=== PATIENT | male | born 1960 | race Caucasian/White ===

== ENCOUNTER 2019-07-07 11:02 | Inpatient (IN) | payer OTHER, MEDICARE ==
[~2019-07-07] VITALS: Ht 177.8 cm; Wt 72.3 kg
[~2019-07-07 11:02] MED LIST: CEPH500 PO; OXYACE5T PO; RXOXYACE PO
[2019-07-07 11:40] LABS: BASOPHILS ABSOLUTE AUTO 0.04 K/mm3 (0.00-0.23); BASOPHILS PERCENT AUTO 0 % (0-2); EOSINOPHILS ABSOLUTE AUTO 0.03 K/mm3 (0.00-0.68); EOSINOPHILS PERCENT AUTO 0 % (0-6); Hematocrit 49.6 % (37.0-53.0); Hemoglobin 16.5 g/dL (13.5-17.5); IMMATURE GRAN ABSOLUTE AUTO 0.13 K/mm3 (0.00-0.10); IMMATURE GRAN PERCENT AUTO 1 % (0-1); LYMPHOCYTES ABSOLUTE AUTO 1.65 K/mm3 (0.84-5.20); LYMPHOCYTES PERCENT AUTO 7 % (21-46); MONOCYTES ABSOLUTE AUTO 1.55 K/mm3 (0.16-1.47); MONOCYTES PERCENT AUTO 7 % (4-13); Mean Corpuscular HGB 29.6 pg (26.0-34.0); Mean Corpuscular HGB Conc 33.3 g/dL (31.5-36.5); Mean Corpuscular Volume 89 fL (80-100); Mean Platelet Volume 8.9 fL (9.1-12.4); NEUTROPHILS ABSOLUTE AUTO 20.36 K/mm3 (1.96-9.15); NEUTROPHILS PERCENT AUTO 86 % (41-73); Platelet Count 421 K/mm3 (150-400); RDW Coefficient Variation 14.1 % (11.7-14.2); RDW Standard Deviation 46.5 fL (35.1-46.3); Red Blood Cell Count 5.57 M/mm3 (4.30-5.90); White Blood Cell Count 23.76 K/mm3 (4.00-11.30)
[2019-07-07 11:59] LABS: Alanine Aminotransfer (ALT/SGP 87 U/L (12-78); Albumin, Blood 3.9 g/dL (3.4-5.0); Alk Phos 279 U/L (50-136); Anion Gap 12 mmol/L (6-16); Aspartate Aminotrans (AST/SGOT 37 U/L (12-37); Bilirubin, Total 0.8 mg/dL (0.1-1.0); Blood Urea Nitrogen 16 mg/dL (8-24); Bun/Creatinine Ratio 20.2 (12.0-20.0); CO2, Blood 27 mmol/L (21-32); Calcium, Blood 9.5 mg/dL (8.5-10.1); Chloride, Blood 100 mmol/L (98-108); Creatinine, Blood 0.79 mg/dL (0.60-1.20); Globulin, Blood 4.1 g/dL (2.2-4.0); Glomerular Filtration Rate >60 (60-); Glucose, Blood 161 mg/dL (70-99); Potassium, Blood 3.2 mmol/L (3.5-5.5); Sodium, Blood 139 mmol/L (136-145)
[2019-07-07] MEDS ORDERED: Prozac20 MG PO (12:11)
[2019-07-07] MEDS ORDERED: CALCIUM 600 +1 EA11 PO (12:11)
[2019-07-07] MEDS ORDERED: Amitriptyline100 MG PO (12:11)
[2019-07-07] MEDS ORDERED: ROSU10TA PO (12:12)
[2019-07-07] MEDS ORDERED: Lisinopril-Hct1 EAC4 PO (12:12)
[2019-07-07] MEDS ORDERED: PANT40 PO (12:12)
[2019-07-07] MEDS ORDERED: TRAM50 PO (12:12)
[2019-07-07 12:37] LABS: Source, Urine Voided
[2019-07-07 12:40] LABS: Bilirubin, Urine Neg (Neg); Blood, Urine 1+ (Neg); Glucose Qualitative, Urine 1+ (Neg); Ketones, Urine 4+ (Neg); Leukocyte Esterase, Urine 1+ (Neg); Nitrite, Urine Neg (Neg); Protein, Urine 3+ (Neg); Specific Gravity, Urine 1.025 (1.003-1.022); Urobilinogen, Urine 1+ (Normal)
[2019-07-07 12:49] LABS: Appearance, Urine Hazy (Clear); Color, Urine Yellow (P-Yellow)
[2019-07-07 12:50] LABS: Calcium Oxalate Crystals Few /hpf
[2019-07-07 12:52] LABS: Mucus Mod (0-Heavy)
[2019-07-07 12:54] LABS: Amorphous Heavy (0-Heavy)
[2019-07-07 12:55] LABS: Bacteria Mod /hpf; Squamous Epithelial Cells Not Seen /hpf (Few)
[2019-07-08 05:25] LABS: BASOPHILS ABSOLUTE AUTO 0.02 K/mm3 (0.00-0.23); BASOPHILS PERCENT AUTO 0 % (0-2); EOSINOPHILS ABSOLUTE AUTO 0.02 K/mm3 (0.00-0.68); EOSINOPHILS PERCENT AUTO 0 % (0-6); Hematocrit 42.9 % (37.0-53.0); Hemoglobin 14.3 g/dL (13.5-17.5); IMMATURE GRAN ABSOLUTE AUTO 0.07 K/mm3 (0.00-0.10); IMMATURE GRAN PERCENT AUTO 0 % (0-1); LYMPHOCYTES ABSOLUTE AUTO 1.68 K/mm3 (0.84-5.20); LYMPHOCYTES PERCENT AUTO 9 % (21-46); MONOCYTES ABSOLUTE AUTO 1.49 K/mm3 (0.16-1.47); MONOCYTES PERCENT AUTO 8 % (4-13); Mean Corpuscular HGB 30.1 pg (26.0-34.0); Mean Corpuscular HGB Conc 33.3 g/dL (31.5-36.5); Mean Corpuscular Volume 90 fL (80-100); NEUTROPHILS ABSOLUTE AUTO 15.27 K/mm3 (1.96-9.15); NEUTROPHILS PERCENT AUTO 82 % (41-73); Platelet Count 328 K/mm3 (150-400); RDW Coefficient Variation 14.3 % (11.7-14.2); RDW Standard Deviation 47.5 fL (35.1-46.3); Red Blood Cell Count 4.75 M/mm3 (4.30-5.90); White Blood Cell Count 18.55 K/mm3 (4.00-11.30)
[2019-07-08 05:41] LABS: Magnesium, Blood 2.2 mg/dL (1.6-2.4)
[2019-07-08 05:42] LABS: Alanine Aminotransfer (ALT/SGP 65 U/L (12-78); Albumin, Blood 2.9 g/dL (3.4-5.0); Albumin/Globulin Ratio 0.9 (0.8-1.8); Alk Phos 197 U/L (50-136); Anion Gap 5 mmol/L (6-16); Aspartate Aminotrans (AST/SGOT 38 U/L (12-37); Bilirubin, Total 1.6 mg/dL (0.1-1.0); Blood Urea Nitrogen 14 mg/dL (8-24); Bun/Creatinine Ratio 22.7 (12.0-20.0); CO2, Blood 28 mmol/L (21-32); Calcium, Blood 8.2 mg/dL (8.5-10.1); Chloride, Blood 108 mmol/L (98-108); Creatinine, Blood 0.62 mg/dL (0.60-1.20); Globulin, Blood 3.2 g/dL (2.2-4.0); Glomerular Filtration Rate >60 (60-); Glucose, Blood 129 mg/dL (70-99); Potassium, Blood 3.3 mmol/L (3.5-5.5); Sodium, Blood 141 mmol/L (136-145); Total Protein, Blood 6.1 g/dL (6.4-8.2)
--- NOTE | 2019-07-08 06:53 | NUR ---
SHIFT SUMMARY PT IS PLEASANT AND COOPERATIVE WITH CARE. HE IS AAOX4 WITH RESP E/U ON RA. VSS THOUGH HE HAS BEEN HYPERTENSIVE THROUGH THE NIGHT. TREATED WITH HYDRALAZINE WITH SMALL SUCCESS. STOMACH PAIN OFF AND ON THROUGH THE NIGHT. TREATED APPROX EVERY TWO HOURS WITH PRN FENTYNAL. PT HAS BEEN NPO SINCE MIDNIGHT. NO ACUTE CHANGES NOTED THIS NIGHT. WILL CONTINUE TO MONITOR.
--- NOTE | 2019-07-08 14:35 | NUR ---
ABD FIRM AND DISTENDED. PAIN LEVEL 8/10. REPORT GIVEN TO JORGE MUJICA RN.
--- NOTE | 2019-07-08 15:05 | NUR ---
RECIEVED REPORT AND ASSUMED CARE OF PATIENT.
--- NOTE | 2019-07-08 17:09 | NUR ---
PATIENT TRANSPORTED TO OR: PATIENT TRANSPORTED TO OR FOR COLECTOMY SURGERY @ 1410.
--- NOTE | 2019-07-08 20:29 | NUR ---
PT ARRIVED FROM PACU AT APPROX 1999. PT LETHARGIC AND IN SOME PAIN. AWAKENS AND ANSWERS QUESTIONS APPROPRIATLY. SATS AT 88-90% ON ROOM AIR. PLACED 1L VIA NC SATS CLIMBED TO 94%, EDUCATED PATIENT ON EPIDURAL USE AND THE BOLUS BUTTON. ONCE PRESSED PATIENT TOOK DEEPER BREATHS AND SATS CLIMBED TO 97% ON 1L. NG SUCTIONING BROWN LIQUID. STOMA PINK AND BEEFY, RESIDUAL STOOL IN BAG, NO FLATUS NOTED. TAVAREZ PATENT AND DRAINING. FOAM COMPRESSED ON PICCO. CALL LIGHT IN REACH. PATIENT ORIENTED TO ROOM
--- NOTE | 2019-07-08 23:00 | NUR ---
SPOKE TO DR. GOSS R/T PT'S PAIN, PT REPORTED 10/10 UNTOLERABLE. GRIMACING AND SQUIRMING, RAPID BREATHING, AND HR 115+PER TELE MONITOR. ORDERS GIVEN TO INCREASE BASAL RATE TO 16ML/HR, AND A ONE TIME DOSE OF 10ML. PER MD CAN LOWER BASAL RATE DOWN TO 13ML/HR IF 16 DEEMED TO HIGH. WILL ADJUST SETTINGS AND CONTINUE TO MONITOR SENSATION, ALERTNESS, AND LEVEL OF PAIN.
--- NOTE | 2019-07-09 01:12 | NUR ---
PT REPORTS DECRESED SENSATION BELOW NIPPLE LINE WITH CHANGE TO NUMBNESS STARTING BILAT UPPER THIGHS DOWN TO KNEES. LIFTS LEGS AND WIGGLES TOES WITHOUT DIFFICULTY.
[2019-07-09 04:08] LABS: BASOPHILS ABSOLUTE AUTO 0.03 K/mm3 (0.00-0.23); BASOPHILS PERCENT AUTO 0 % (0-2); EOSINOPHILS ABSOLUTE AUTO 0.02 K/mm3 (0.00-0.68); EOSINOPHILS PERCENT AUTO 0 % (0-6); Hematocrit 36.3 % (37.0-53.0); Hemoglobin 11.8 g/dL (13.5-17.5); IMMATURE GRAN ABSOLUTE AUTO 0.08 K/mm3 (0.00-0.10); IMMATURE GRAN PERCENT AUTO 1 % (0-1); LYMPHOCYTES ABSOLUTE AUTO 1.39 K/mm3 (0.84-5.20); LYMPHOCYTES PERCENT AUTO 8 % (21-46); MONOCYTES ABSOLUTE AUTO 1.52 K/mm3 (0.16-1.47); MONOCYTES PERCENT AUTO 9 % (4-13); Mean Corpuscular HGB 29.9 pg (26.0-34.0); Mean Corpuscular HGB Conc 32.5 g/dL (31.5-36.5); Mean Corpuscular Volume 92 fL (80-100); Mean Platelet Volume 8.9 fL (9.1-12.4); NEUTROPHILS ABSOLUTE AUTO 13.48 K/mm3 (1.96-9.15); NEUTROPHILS PERCENT AUTO 82 % (41-73); Platelet Count 263 K/mm3 (150-400); RDW Coefficient Variation 14.4 % (11.7-14.2); RDW Standard Deviation 48.3 fL (35.1-46.3); Red Blood Cell Count 3.94 M/mm3 (4.30-5.90); White Blood Cell Count 16.52 K/mm3 (4.00-11.30)
--- NOTE | 2019-07-09 04:23 | NUR ---
SHIFT SUMMARY POD 1 COLECTOMY WITH NEW OSTOMY STOMA PINK AND BEEFY. BROWN LOOSE STOOL AND GAS PASSED DURING SHIFT. PICCO INTACT NO CHANGES SINCE ARRIVAL, GREEN LIGHT ON. EPIDURAL IN PLACE, RATE INCREASED TO 16ML/HR PATIENT REPORTS PAIN IS GREATLY REDUCED, HE IS ABLE TO REPOSITION IN BED AND SIT UP ON HIS OWN. SENSATION REMAINS UNCHANGED DURING SHIFT. WIGGLES FINGERS AND TOES, DENIES SOB. PLACED ON 1L UPON ARRIVAL R/T SATS AT 88%, HAS BEEN ON ROOM AIR IN THE HIGH 90'S FOR MOST OF SHIFT. SPOKE WITH PT ABOUT OSTOMY, HE IS EAGER TO LEARN AND HOPEFUL IT WILL HELP HIM. NG TUBE THICK BROWN OUTPUT DURING SHIFT.
[2019-07-09 04:26] LABS: Anion Gap 3 mmol/L (6-16); Blood Urea Nitrogen 15 mg/dL (8-24); Bun/Creatinine Ratio 18.9 (12.0-20.0); CO2, Blood 31 mmol/L (21-32); Calcium, Blood 7.3 mg/dL (8.5-10.1); Chloride, Blood 111 mmol/L (98-108); Creatinine, Blood 0.79 mg/dL (0.60-1.20); Glomerular Filtration Rate >60 (60-); Glucose, Blood 119 mg/dL (70-99); Potassium, Blood 3.8 mmol/L (3.5-5.5); Sodium, Blood 145 mmol/L (136-145)
--- NOTE | 2019-07-09 14:26 | NUR ---
DR CLEANING IN TO SEE PT.
--- NOTE | 2019-07-09 17:20 | NUR ---
SUMMARY NO ACUTE CHANGES THIS SHIFT. VSS. SENSATION HAS CONSISTENTLY BEEN DECREASED FROM APPROXIMATELY THE UMBILICUS TO KNEES. OSTOMY PUTTING OUT FLATUS AND SOFT BROWN STOOL. NG TUBE DC'D THIS SHIFT PER ORDERS. PT TOLERATING SIPS OF CLEARS. CALL LIGHT AND EPIDURAL BUTTON IN REACH.
--- NOTE | 2019-07-10 04:28 | NUR ---
SHIFT SUMMARY: ALEM IS A&O X4, TOLERATING SIPS OF CLEARS WELL. EPIDURAL PATENT, IMPAIRED SENSATION FROM MID-WAIST TO MID-THIGH. TAVAREZ PATENT. IV PATENT, FLUIDS INFUSING. TELE, CONTINUOUS BIOX, AND PAS IN PLACE. PT REPORTS ADEQUATE PAIN CONTROL WITH EPIDURAL. HE IS ABLE TO MAKE HIS NEEDS KNOWN. HE USES HIS CALL LIGHT APPROPRIATELY. COLOSTOMY DRAINING LOOSE, BROWN STOOL. MIDLINE INCISION WITH JOSHUA IN PLACE, PATENT. WILL REPORT TO DAY SHIFT RN.
--- NOTE | 2019-07-10 15:29 | NUR ---
SHIFT SUMMARY NO ACUTE CHANGES. PT REPORTS PAIN TOLERABLE WITH EPIDURAL. EPIDURAL SITE WNL. DERMATOMES FROM MID ABD TO MID THIGH. JOSHUA WOUND VAC TO MIDLINE ABD REMAINS DRY AND INTACT. OSTOMY PUTTING OUT GAS AND SMALL BROWN LIQ STOOL. SEBASTIAN CLEAR LIQ DIET. TAVAREZ PATENT AND DRAINING. PLAN IS FOR EPIDURAL TO BE REMOVED TOMORROW PER DR. GOSS. PT USES CALL LIGHT APPROPRIATELY.
--- NOTE | 2019-07-11 04:04 | NUR ---
SHIFT SUMMARY: ALEM IS A&O X 4. EPIDURAL INTACT, HE REPORTS ADEQUATE PAIN CONTROL. HE REPORTS GAS PAIN FOR WHICH REPOSITIONING WAS MILDLY EFFECTIVE. HE DENIES N/V. HE IS TOLERATING CLEAR LIQUIDS WELL, REPORTS SIGNIFICANT INCREASE IN INTAKE FROM YESTERDAY. OSTOMY PRODUCING LIQUID BROWN STOOL AND FLATUS. PAS IN PLACE. TAVAREZ DRAINING DARK URINE. HE IS ABLE TO MAKE HIS NEEDS KNOWN. HE IS LYING IN BED WITH HIS CALL LIGHT IN REACH. VSS. ORA. NO ACUTE EVENTS THIS SHIFT. WILL REPORT TO DAY SHIFT RN.
[2019-07-11 05:12] LABS: BASOPHILS ABSOLUTE AUTO 0.02 K/mm3 (0.00-0.23); BASOPHILS PERCENT AUTO 0 % (0-2); EOSINOPHILS ABSOLUTE AUTO 0.37 K/mm3 (0.00-0.68); EOSINOPHILS PERCENT AUTO 3 % (0-6); Hematocrit 37.9 % (37.0-53.0); Hemoglobin 12.6 g/dL (13.5-17.5); IMMATURE GRAN ABSOLUTE AUTO 0.03 K/mm3 (0.00-0.10); IMMATURE GRAN PERCENT AUTO 0 % (0-1); LYMPHOCYTES ABSOLUTE AUTO 1.17 K/mm3 (0.84-5.20); LYMPHOCYTES PERCENT AUTO 9 % (21-46); MONOCYTES ABSOLUTE AUTO 1.29 K/mm3 (0.16-1.47); MONOCYTES PERCENT AUTO 10 % (4-13); Mean Corpuscular HGB 30.5 pg (26.0-34.0); Mean Corpuscular HGB Conc 33.2 g/dL (31.5-36.5); Mean Corpuscular Volume 92 fL (80-100); Mean Platelet Volume 8.9 fL (9.1-12.4); NEUTROPHILS PERCENT AUTO 77 % (41-73); Platelet Count 244 K/mm3 (150-400); RDW Coefficient Variation 14.2 % (11.7-14.2); RDW Standard Deviation 48.3 fL (35.1-46.3); Red Blood Cell Count 4.13 M/mm3 (4.30-5.90); White Blood Cell Count 12.78 K/mm3 (4.00-11.30)
[2019-07-11 05:37] LABS: Anion Gap 3 mmol/L (6-16); Blood Urea Nitrogen 7 mg/dL (8-24); Bun/Creatinine Ratio 11.4 (12.0-20.0); CO2, Blood 31 mmol/L (21-32); Calcium, Blood 7.7 mg/dL (8.5-10.1); Chloride, Blood 108 mmol/L (98-108); Creatinine, Blood 0.61 mg/dL (0.60-1.20); Glomerular Filtration Rate >60 (60-); Glucose, Blood 131 mg/dL (70-99); Potassium, Blood 3.5 mmol/L (3.5-5.5); Sodium, Blood 142 mmol/L (136-145)
--- NOTE | 2019-07-11 10:59 | NUR ---
EPIDURAL CATH REMOVED BY FBP RN. CATHETER TIP INTACT. PT SEBASTIAN WELL. PT STARTED ON ORAL PAIN MEDICATIONS.
--- NOTE | 2019-07-11 16:37 | NUR ---
SHIFT SUMMARY PT HAVING PAIN MANAGMENT ISSUES SINCE EPIDURAL REMOVED. PT RECEIVING 2 NORCO Q4H, 50 MCG IV FENTANYL Q2, AND HAS HAD 1MG IV MORPHINE. PT STILL REPORTING 7-8/10 PAIN. BP IS HIGH--X1 HYDRALAZINE GIVEN. JOSHUA TO MIDLINE IS CDI AND OSTOMY PRODUCING GAS + BROWN LIQ STOOL. PT UP TO CHAIR AND AMBULATED HALLWAY TODAY WITH 1 SBA. SEBASTIAN CLEAR LIQ DIET. TAVAREZ CATH BEING REMOVED THIS EVENING. IVF SL PT SEBASTIAN PO INTAKE. CALLING DR. TORRES REGARDING PAIN MANAGEMENT ORDERS. CALL LIGHT WITHIN REACH.
--- NOTE | 2019-07-12 04:00 | NUR ---
SHIFT SUMMARY: ALEM IS A&O X4. HE HAS CONTINUED TO HAVE DIFFICULTY WITH PAIN CONTROL. ABDOMEN IS FIRM AND TENDER, HYPOACTIVE BOWEL TONES AND DECREASED COLOSTOMY OUTPUT. HE DID AMBULATE IN THE HALLWAY TO HELP WITH BOWEL MOTILITY. HE IS USING THE URINAL WITHOUT DIFFICULTY. NO ORDERS FOR ANTIINFLAMMATORY MEDICATION, REQUESTED FROM CUSTOMER SERVICE ADMINISTRATOR SURGEON. TELE AND CONTINUOUS PULSE OX IN PLACE. BP ELEVATED, HYDRALAZINE GIVEN. FENTANYL DRUG DISCOVERY INFORMATICS SPECIALIST PATENT. HE IS ABLE TO MAKE HIS NEEDS KNOWN AND USES HIS CALL LIGHT APPROPRIATELY. WILL REPORT TO DAY SHIFT RN.
--- NOTE | 2019-07-12 12:21 | NUR ---
PT RATING PAIN AT 4/10 THIS AM, AND REPORTED THAT TORADOL SEEMED TO HELP. WITH HOURLY ROUNDING SO FAR PT REPORTED PAIN TOLERABLE WHILE USING CANDLE MOLDER HAND BUTTON AND PT ABLE TO SLEEP SOME, THIS RN ENCOURAGED USE OF CANDLE MOLDER HAND BUTTON. PT REPORTS THAT HE DID NOT SLEEP WELL LAST NIGHT AND WOULD LIKE TO SLEEP. AT ABOUT 1200 PT CALLED THIS RN STATING THAT HE IS IN 10/10 PAIN AND THAT HE "HAS BEEN IN [place] FOR 24HRS". UPON ASSESSMENT PT SEEMS TO HAVE HAD ACUTE INCREASE IN PAIN HE REPORTS AFTER DRINKING A LITTLE. PT ABD IS FIRM, MODERATLY DISTENDED. THERE IS GAS AND A SMALL AMT OUTPUT FROM OSTOMY BAG. THESE ARE THE SAME FINDINGS FROM MY ASSESSMENT THIS AM. PT MEDICATED WITH TORDOL AND PERCOCET AT THIS TIME. DR. CLEANING AND DR. TELLES ARE AWARE OF PT INCREASED PAIN. WILL CTM PT STATUS
--- NOTE | 2019-07-12 13:05 | NUR ---
PT REPORTS PAIN HAS "COME DOWN SOME" WITH THE TORADOL AND PERCOCET. BEDBATH OFFERED AT THIS TIME, PT STATES THAT HE WOULD JUST LIKE TO SLEEP. WILL CTM.
--- NOTE | 2019-07-12 18:13 | NUR ---
SUMMARY: SEE PREVIOUS NOTES FROM THIS RN. PT IS POD4 SIGMOID COLECTOMY. PT PAIN SEEMS TO BE WELL MANAGED CURRENTLY, PT RATES AT 4/10. ENCOURAGING MOBILITY. PT HAD A BEDBATH AND TRANSFERED IN ROOM. ABD CONTINUES TO BE DISTENDED, NO ACUTE CHANGE IN ABD/SURGICAL SITE ASSESSMENT COMPARED TO THIS MORNING. PT TAKING IN SMALL AMT OF LIQUIDS ONLY. TELE WNL. MEDICATED PRN FOR HTN. WILL CTM PT STATUS AND REPORT TO NOC RN.
--- NOTE | 2019-07-13 04:57 | NUR ---
SHIFT SUMMARY LYING IN SEMI FOWLERS WITH EYES CLOSED. HAS BEEN [id number] SELF IN BED. ABLE TO USE URINAL AT BEDSIDE. MIDLINE JOSHUA IS PATENT, PAD IS COMPRESSED. LLQ COLOSTOMY IS PATENT, LIQUID BROWN STOOL WITH GAS NOTED IN BAG. CONTINUED TEACHING WITH OSTOMY THIS SHIFT, VERBALIZES UNDERSTANDING. PROMPTED WITH EACH ROUNDING TO CHECK OSTOMY, RETURN DEMONSTRATES HOW TO CHECK AND WHEN TO EMPTY. DENEIS FURTHER NEEDS OR WANTS AT THIS TIME. SAFETY MEASURES IN PLACE. WILL GIVE HAND OFF TO ONCOMING SHIFT USING SBAR DURING BEDSIDE REPORT.
[2019-07-13 12:00] LABS: Anion Gap 7 mmol/L (6-16); Blood Urea Nitrogen 11 mg/dL (8-24); Bun/Creatinine Ratio 20.8 (12.0-20.0); CO2, Blood 30 mmol/L (21-32); Calcium, Blood 7.9 mg/dL (8.5-10.1); Chloride, Blood 104 mmol/L (98-108); Creatinine, Blood 0.53 mg/dL (0.60-1.20); Glomerular Filtration Rate >60 (60-); Glucose, Blood 108 mg/dL (70-99); Potassium, Blood 3.4 mmol/L (3.5-5.5); Sodium, Blood 141 mmol/L (136-145)
--- NOTE | 2019-07-13 12:33 | NUR ---
OSTOMY APPLIANCE FOUND LEAKING AROUND EDGE WHILE PT WALKING. APPLIANCE CHANGED AT ABOUT 1020. PT EDUCATED WHILE REPLACING. STOMA OUTPUT IS LIQUID AND BROWN, ALSO PRODUCING GAS. ABD APPEARS LESS DISTENDED THAN YESTERDAY, WILL CTM.
--- NOTE | 2019-07-13 17:50 | NUR ---
SUMMARY: PT IS POD5 SIGMOID COLECTOMY. VSS, A/O. DID BETTER TODAY, REPORTS PAIN IS MUCH BETTER. PT ABLE TO AMBULATE IN HALLS. OSTOMY HAD INCREASED OUTPUT OF LIQ BROWN STOOL AND GAS. ADVANCING DIET TO FULL LIQ FOR DINNER. PT HAS DENIED NAUSEA, DOES COMPLAIN OF INTERMITTANT ACID REFLUX. MEDICATED PER EMAR. PT IS VOIDING MORE FREQUENTLY. SURGICAL SITES WNL. NO ACUTE CONCERNS AT THIS TIME, PLAN IS POSSIBLE DC TOMORROW OR FRIDAY.
--- NOTE | 2019-07-14 04:34 | NUR ---
SHIFT SUMMARY LYING IN SEMI FOWLERS WITH EYES CLOSED. HAS [id number] SELF IN BED. ABLE TO USE URINAL AT BEDSIDE. LLQ COLOSTOMY IS PATENT, LIQUID BROWN STOOL WITH GAS NOTED IN BAG. CONTINUED TEACHING WITH OSTOMY THIS SHIFT, VERBALIZES UNDERSTANDING. PROMPTED WITH EACH ROUNDING TO CHECK OSTOMY, RETURN DEMONSTRATES HOW TO CHECK AND WHEN TO EMPTY. DENIES FURTHER NEEDS OR WANTS AT THIS TIME. SAFETY MEASURES IN PLACE. WILL GIVE HAND OFF TO ONCOMING SHIFT USING SBAR DURING BEDSIDE REPORT.
--- NOTE | 2019-07-14 10:28 | NUR ---
DISCUSSED PT'S STATUS WITH DR LEONARD.
[2019-07-14] MEDS ORDERED: AMLO5 PO (13:52)
[2019-07-14] MEDS ORDERED: TUMS500 MG PO (13:56)
[2019-07-14] MEDS ORDERED: HYDR10 PO (14:06)
[2019-07-14] MEDS ORDERED: ROXICODONE5 MG PO (14:16)
[2019-07-14] MEDS ORDERED: ONDA4ODT PO (14:16)
--- NOTE | 2019-07-14 15:00 | NUR ---
DISCHARGE: PT EATING AND DRINKING, VOIDING. PT ABLE TO EMPTY OSTOMY. REPORTS WATCHING STAFF CHANGE A COUPLE OF TIMES AND FEELS THAT HE IS ABLE TO CHANGE IF NECC. PT REPORTS WILL WATCH VIDEO IF NEEDED THAT HE HAS WATCHED SOME. PT UP IND IN ROOM, SCRIPT FOR WALKER IF PT FEELS HE NEEDS IT. PT STEADY ON FEET. PT JOSHUA DRESSING DC'D PER DR CLEANING, WHO REPORTED THAT HE IS CLEAR TO GO HOME TODAY. MEPILEX DRESSING PLACED TO INCISION. INCISION APPEARS WNL WITH SELWYN IN PLACE. IV OUT WNL. PT REPORTS WILL CALL FOR RIDE HOME. PT GIVEN SUPPLIES FOR OSTOMY CHANGES AND REPORTS UNDERSTANDING OF WHAT IS EACH USED FOR AND HOW TO CHANGE OSTOMY. GLUE MIXER ASSISTED WITH DISCHARGE INCLUDING H.H. AND OSTOMY SUPPLIES. PT MEDICATION L[facility] TO [facility] PER PT REQ HE STATES THAT'S WHERE HE GETS HIS MEDICATIONS. PT GIVEN SCRIPT FOR PAIN MEDICATION AND WALKER.
--- NOTE | 2019-07-14 16:16 | NUR ---
PT RIDE HERE RECENTLY. PT GIVEN W/C RIDE TO CAR WITH GRANDDAUGHTER GIVING PT RIDE HOME. BELONGINGS AND PAPERWORK INCLUDING SCRIPTS SENT WITH PT WELL DRESSING AND OSTOMY SUPPLIES.
== END 2019-07-14 16:05 | disposition home health service (06) | DRG 854 ==
LOC: ER 11:02 → MEDS 14:54 → SURS 14:54 → MEDS 16:40 → SURS 07-08 18:18
PROVIDERS: Emergency Medicine; Internal Medicine; Nurse Practitioner Acute Care; Surgery; ADMIT Internal Medicine
PROC: 0D1N0Z4 Bypass Sigmoid Colon to Cutaneous, Open Approach (ICD-10-PCS; 2019-07-08)
PROC: 0DTN0ZZ Resection of Sigmoid Colon, Open Approach (ICD-10-PCS; principal; 2019-07-08 12:00)
DX: A41.9 Sepsis, unspecified organism (principal); K56.699 Other intestinal obstruction unspecified as to partial versus complete obstruction; N39.0 Urinary tract infection, site not specified; C18.7 Malignant neoplasm of sigmoid colon; R65.20 Severe sepsis without septic shock; I10 Essential (primary) hypertension; E87.6 Hypokalemia; K21.9 Gastro-esophageal reflux disease without esophagitis; F32.9 Major depressive disorder, single episode, unspecified; G89.29 Other chronic pain
CPT/HCPCS: 36415; 74018; 74022; 74176; 80048; 80053; 81001; 83605; 83690; 83735; 85025; 85651; 86140; 86850; 86900; 86901; 87040; 87086; 88309; 93005; 93010; 94762; 96361; 96365; 96366; 96367; 96375; 99285-25; A9270-GY; C9113; J0360; J1170; J1644; J1650; J1885; J2060; J2250; J2270; J2370; J2405; J2543; J2704; J2710; J2765; J3010; J3480; J7030; J7050; J7120

== ENCOUNTER 2020-06-18 09:55 | Emergency (ER) | payer OTHER, MEDICARE ==
[~2020-06-18] VITALS: Ht 177.8 cm; Wt 74.8 kg
[~2020-06-18 09:55] MED LIST changes: +AMLO5 PO; +Amitriptyline100 MG PO; +CALCIUM 600 +1 EA11 PO; +HYDR10 PO; +Lisinopril-Hct1 EAC4 PO; +ONDA4ODT PO; +PANT40 PO; +Prozac20 MG PO; +ROSU10TA PO; +ROXICODONE5 MG PO; +TRAM50 PO; +TUMS500 MG PO
[2020-06-18 10:46] LABS: BASOPHILS ABSOLUTE AUTO 0.05 K/mm3 (0.00-0.23); BASOPHILS PERCENT AUTO 1 % (0-2); EOSINOPHILS ABSOLUTE AUTO 0.27 K/mm3 (0.00-0.68); EOSINOPHILS PERCENT AUTO 3 % (0-6); Hemoglobin 13.2 g/dL (13.5-17.5); IMMATURE GRAN ABSOLUTE AUTO 0.05 K/mm3 (0.00-0.10); IMMATURE GRAN PERCENT AUTO 1 % (0-1); LYMPHOCYTES ABSOLUTE AUTO 1.35 K/mm3 (0.84-5.20); LYMPHOCYTES PERCENT AUTO 13 % (21-46); MONOCYTES ABSOLUTE AUTO 0.86 K/mm3 (0.16-1.47); MONOCYTES PERCENT AUTO 8 % (4-13); Mean Corpuscular HGB 29.4 pg (26.0-34.0); Mean Corpuscular HGB Conc 33.8 g/dL (31.5-36.5); Mean Corpuscular Volume 87 fL (80-100); Mean Platelet Volume 8.5 fL (9.1-12.4); NEUTROPHILS ABSOLUTE AUTO 8.01 K/mm3 (1.96-9.15); NEUTROPHILS PERCENT AUTO 76 % (41-73); Platelet Count 276 K/mm3 (150-400); RDW Coefficient Variation 14.3 % (11.7-14.2); RDW Standard Deviation 45.7 fL (35.1-46.3); Red Blood Cell Count 4.49 M/mm3 (4.30-5.90); White Blood Cell Count 10.59 K/mm3 (4.00-11.30)
[2020-06-18 11:05] LABS: Alanine Aminotransfer (ALT/SGP 36 U/L (12-78); Albumin, Blood 3.4 g/dL (3.4-5.0); Albumin/Globulin Ratio 0.9 (0.8-1.8); Alk Phos 186 U/L (50-136); Anion Gap 4 mmol/L (6-16); Aspartate Aminotrans (AST/SGOT 21 U/L (12-37); Bilirubin, Total 0.2 mg/dL (0.1-1.0); Blood Urea Nitrogen 9 mg/dL (8-24); Bun/Creatinine Ratio 12.5 (12.0-20.0); CO2, Blood 27 mmol/L (21-32); Calcium, Blood 8.7 mg/dL (8.5-10.1); Chloride, Blood 108 mmol/L (98-108); Creatinine, Blood 0.72 mg/dL (0.60-1.20); Globulin, Blood 3.7 g/dL (2.2-4.0); Glomerular Filtration Rate >60 (60-); Glucose, Blood 126 mg/dL (70-99); Potassium, Blood 4.2 mmol/L (3.5-5.5); Sodium, Blood 139 mmol/L (136-145); Total Protein, Blood 7.1 g/dL (6.4-8.2)
[2020-06-18] MEDS ORDERED: MIRALAX17 GM PO (11:11)
[2020-06-18] MEDS ORDERED: ONDA4ODT MM (12:13)
[2020-06-18] MEDS ORDERED: MECL25 PO (12:13)
== END 2020-06-18 12:59 | disposition home or self-care (01) ==
LOC: ER 09:55
PROVIDERS: Emergency Medicine
DX: H81.399 Other peripheral vertigo, unspecified ear (principal); Z79.899 Other long term (current) drug therapy; Z88.7 Allergy status to serum and vaccine
CPT/HCPCS: 36415; 80053; 85025; 93005; 93010; 96374; 99284-25; A9270; J2550

== ENCOUNTER 2021-06-16 10:45 | Observation (INO) | payer OTHER ==
[~2021-06-16] VITALS: Ht 177.8 cm; Wt 76.2 kg
[~2021-06-16 10:45] MED LIST changes: +MECL25 PO; +MIRALAX17 GM PO; +ONDA4ODT MM
[2021-06-16 11:52] LABS: BASOPHILS ABSOLUTE AUTO 0.04 K/mm3 (0.00-0.23); BASOPHILS PERCENT AUTO 0 % (0-2); EOSINOPHILS ABSOLUTE AUTO 0.02 K/mm3 (0.00-0.68); EOSINOPHILS PERCENT AUTO 0 % (0-6); Hematocrit 43.5 % (37.0-53.0); Hemoglobin 14.6 g/dL (13.5-17.5); IMMATURE GRAN ABSOLUTE AUTO 0.07 K/mm3 (0.00-0.10); IMMATURE GRAN PERCENT AUTO 1 % (0-1); LYMPHOCYTES ABSOLUTE AUTO 1.14 K/mm3 (0.84-5.20); LYMPHOCYTES PERCENT AUTO 8 % (21-46); MONOCYTES PERCENT AUTO 4 % (4-13); Mean Corpuscular HGB 29.7 pg (26.0-34.0); Mean Corpuscular HGB Conc 33.6 g/dL (31.5-36.5); Mean Corpuscular Volume 88 fL (80-100); Mean Platelet Volume 9.6 fL (9.1-12.4); NEUTROPHILS ABSOLUTE AUTO 13.22 K/mm3 (1.96-9.15); NEUTROPHILS PERCENT AUTO 88 % (41-73); Platelet Count 218 K/mm3 (150-400); RDW Coefficient Variation 14.2 % (11.7-14.2); Red Blood Cell Count 4.92 M/mm3 (4.30-5.90); White Blood Cell Count 15.09 K/mm3 (4.00-11.30)
[2021-06-16 12:13] LABS: Alanine Aminotransfer (ALT/SGP 33 U/L (12-78); Albumin, Blood 3.7 g/dL (3.4-5.0); Alk Phos 173 U/L (50-136); Anion Gap 7 mmol/L (6-16); Aspartate Aminotrans (AST/SGOT 27 U/L (12-37); Bilirubin, Total 0.5 mg/dL (0.1-1.0); Blood Urea Nitrogen 12 mg/dL (8-24); Bun/Creatinine Ratio 18.5 (12.0-20.0); CO2, Blood 20 mmol/L (21-32); Calcium, Blood 8.9 mg/dL (8.5-10.1); Chloride, Blood 111 mmol/L (98-108); Creatinine, Blood 0.65 mg/dL (0.60-1.20); Globulin, Blood 3.6 g/dL (2.2-4.0); Glomerular Filtration Rate >60 (60-); Glucose, Blood 148 mg/dL (70-99); Potassium, Blood 4.3 mmol/L (3.5-5.5); Sodium, Blood 138 mmol/L (136-145); Total Protein, Blood 7.3 g/dL (6.4-8.2)
[2021-06-16 17:05] LABS: Influenza A, PCR NEGATIVE (NEGATIVE); Influenza B, PCR NEGATIVE (NEGATIVE); Resp Syncytial Virus, PCR NEGATIVE (NEGATIVE); SARS-Cov-2 (COVID-19) PCR, MMC NEGATIVE (NEGATIVE)
[2021-06-16] MEDS ORDERED: ELIQUIS2.5 MG PO (20:29)
[2021-06-16] MEDS ORDERED: XARELTO20 MG PO (20:51)
[2021-06-17 04:27] LABS: BASOPHILS ABSOLUTE AUTO 0.03 K/mm3 (0.00-0.23); BASOPHILS PERCENT AUTO 0 % (0-2); EOSINOPHILS ABSOLUTE AUTO 0.27 K/mm3 (0.00-0.68); EOSINOPHILS PERCENT AUTO 2 % (0-6); Hematocrit 44.4 % (37.0-53.0); Hemoglobin 14.5 g/dL (13.5-17.5); IMMATURE GRAN ABSOLUTE AUTO 0.07 K/mm3 (0.00-0.10); IMMATURE GRAN PERCENT AUTO 0 % (0-1); LYMPHOCYTES PERCENT AUTO 10 % (21-46); MONOCYTES ABSOLUTE AUTO 1.59 K/mm3 (0.16-1.47); MONOCYTES PERCENT AUTO 10 % (4-13); Mean Corpuscular HGB 29.2 pg (26.0-34.0); Mean Corpuscular HGB Conc 32.7 g/dL (31.5-36.5); Mean Corpuscular Volume 90 fL (80-100); Mean Platelet Volume 9.3 fL (9.1-12.4); NEUTROPHILS ABSOLUTE AUTO 13.13 K/mm3 (1.96-9.15); NEUTROPHILS PERCENT AUTO 78 % (41-73); Platelet Count 250 K/mm3 (150-400); RDW Coefficient Variation 14.4 % (11.7-14.2); RDW Standard Deviation 46.5 fL (35.1-46.3); Red Blood Cell Count 4.96 M/mm3 (4.30-5.90); White Blood Cell Count 16.79 K/mm3 (4.00-11.30)
[2021-06-17 04:46] LABS: Alanine Aminotransfer (ALT/SGP 71 U/L (12-78); Albumin, Blood 3.5 g/dL (3.4-5.0); Albumin/Globulin Ratio 0.9 (0.8-1.8); Alk Phos 180 U/L (50-136); Anion Gap 4 mmol/L (6-16); Aspartate Aminotrans (AST/SGOT 55 U/L (12-37); Bilirubin, Total 0.7 mg/dL (0.1-1.0); Blood Urea Nitrogen 12 mg/dL (8-24); Bun/Creatinine Ratio 16.3 (12.0-20.0); CO2, Blood 31 mmol/L (21-32); Calcium, Blood 8.5 mg/dL (8.5-10.1); Chloride, Blood 107 mmol/L (98-108); Creatinine, Blood 0.74 mg/dL (0.60-1.20); Globulin, Blood 3.7 g/dL (2.2-4.0); Glomerular Filtration Rate >60 (60-); Glucose, Blood 159 mg/dL (70-99); Potassium, Blood 4.3 mmol/L (3.5-5.5); Sodium, Blood 142 mmol/L (136-145); Total Protein, Blood 7.2 g/dL (6.4-8.2)
--- NOTE | 2021-06-17 09:52 | NUR ---
NOTIFIED DR GOODE PT'S SBP 172 AND PT TAKE BP MEDS AT HOME.
--- NOTE | 2021-06-17 11:56 | NUR ---
PT TO PRE OP
--- NOTE | 2021-06-17 13:17 | NUR ---
06/17/21 1317 Elodia Matta PATIENT ON SCHEDULED ANTIBIOTICS. RECEIVED ZOSYN 3.375 G AT 1142 TODAY 06/17/21.
--- NOTE | 2021-06-17 15:49 | NUR ---
PT ARRIVED TO UNIT FROM PACU LAP INCISIONS X3 TO ABD W/DERMABOND. VSS. PT STATES HAS "A LITTLE BIT" OF PAIN, DID NOT RATE ON PAIN SCALE. DENIES NEED FOR PAIN MEDS AT THIS TIME. DENIES NAUSEA. PROVIDED ICE WATER AND CHIPS. CALL LIGHT IN REACH.
--- NOTE | 2021-06-17 18:59 | NUR ---
REPORT GIVEN TO ONCOMING SHIFT.
[2021-06-18 00:10] LABS: C DIFFICILE DNA NEGATIVE (Negative)
--- NOTE | 2021-06-18 02:35 | NUR ---
REPORTED TO CHARLEE ANN RN AND SHE WILL ASSUME CARE.
[2021-06-18 04:08] LABS: Hematocrit 37.2 % (37.0-53.0); Hemoglobin 12.2 g/dL (13.5-17.5); Mean Corpuscular HGB 29.5 pg (26.0-34.0); Mean Corpuscular HGB Conc 32.8 g/dL (31.5-36.5); Mean Corpuscular Volume 90 fL (80-100); Mean Platelet Volume 9.3 fL (9.1-12.4); Platelet Count 203 K/mm3 (150-400); RDW Coefficient Variation 14.4 % (11.7-14.2); RDW Standard Deviation 47.5 fL (35.1-46.3); Red Blood Cell Count 4.14 M/mm3 (4.30-5.90); White Blood Cell Count 16.98 K/mm3 (4.00-11.30)
[2021-06-18 04:26] LABS: Alanine Aminotransfer (ALT/SGP 191 U/L (12-78); Albumin, Blood 2.9 g/dL (3.4-5.0); Albumin/Globulin Ratio 0.8 (0.8-1.8); Alk Phos 158 U/L (50-136); Anion Gap 4 mmol/L (6-16); Aspartate Aminotrans (AST/SGOT 127 U/L (12-37); Bilirubin, Total 0.5 mg/dL (0.1-1.0); Blood Urea Nitrogen 11 mg/dL (8-24); Bun/Creatinine Ratio 16.6 (12.0-20.0); CO2, Blood 29 mmol/L (21-32); Calcium, Blood 8.3 mg/dL (8.5-10.1); Chloride, Blood 109 mmol/L (98-108); Creatinine, Blood 0.66 mg/dL (0.60-1.20); Globulin, Blood 3.5 g/dL (2.2-4.0); Glomerular Filtration Rate >60 (60-); Glucose, Blood 131 mg/dL (70-99); Potassium, Blood 3.9 mmol/L (3.5-5.5); Sodium, Blood 142 mmol/L (136-145); Total Protein, Blood 6.4 g/dL (6.4-8.2)
--- NOTE | 2021-06-18 04:43 | NUR ---
Patient has been declining all offers to get out of bed since coming back from surgery.
--- NOTE | 2021-06-18 06:24 | NUR ---
SHIFT SUMMARY: RECEIVED PT. AT 0230 FROM [facility], SINCE THEN PT. WAS NOTED SLEEPING. WHEN I GAVE MORNING MED., PT. STATED " I FEEL FINE", NO ACUTE SYMPTOMS NOTED. WILL CONTINUE TO MONITOR.
[2021-06-18] MEDS ORDERED: ROXICODONE5 MG PO (13:06)
--- NOTE | 2021-06-18 14:15 | NUR ---
DISCHARGED TO HOME. DC INSTRUCTIONS EXPLAINED AND COPY GIVEN TO PATIENT. PRESCRIPTION GIVEN TO PATIENT. STATES PAIN IS WELL CONTROLLED WITH ONE ROXICODONE (5MG). HERE TO TAKE PATIENT HOME. W/C TO EXIT WITH BELONGINGS.
== END 2021-06-18 14:14 | disposition home or self-care (01) ==
LOC: ER 10:45 → SURS 21:22 → ER 21:22 → SURS 21:23
PROVIDERS: Emergency Medicine; Internal Medicine; Surgery; ADMIT Internal Medicine
DX: K80.00 Calculus of gallbladder with acute cholecystitis without obstruction (principal); I10 Essential (primary) hypertension; K21.9 Gastro-esophageal reflux disease without esophagitis; E78.5 Hyperlipidemia, unspecified; I73.9 Peripheral vascular disease, unspecified; F32.A Depression, unspecified; Z93.3 Colostomy status; Z88.7 Allergy status to serum and vaccine; Z85.038 Personal history of other malignant neoplasm of large intestine; Z87.891 Personal history of nicotine dependence; Z20.822 Contact with and (suspected) exposure to COVID-19; Z90.49 Acquired absence of other specified parts of digestive tract
CPT/HCPCS: 0241U; 36415; 74177; 74300; 76705; 80053; 82947; 83605; 83690; 84484; 85025; 85027; 87493; 88304; 93005; 93010; 96374; 96375; 96376; 99285-25; A9270; C9113; J1100; J1170; J1610; J1885; J2270; J2405; J2543; J2704; J2765; J3010; J7030; J7120; Q9967

== ENCOUNTER 2021-08-11 17:36 | Emergency (ER) | payer OTHER, MEDICARE ==
[~2021-08-11] VITALS: Ht 177.8 cm; Wt 74.8 kg
[~2021-08-11 17:36] MED LIST changes: +ELIQUIS2.5 MG PO; +XARELTO20 MG PO
[2021-08-11] MEDS ORDERED: LORA.5 PO (18:59)
[2021-08-11] MEDS ORDERED: TRAZ50 PO (18:59)
[2021-08-11] MEDS ORDERED: HYDHCL25 PO (18:59)
== END 2021-08-11 19:08 | disposition home or self-care (01) ==
LOC: ER 17:36
DX: F41.0 Panic disorder [episodic paroxysmal anxiety] (principal); F32.A Depression, unspecified; G47.00 Insomnia, unspecified; Z88.7 Allergy status to serum and vaccine; I10 Essential (primary) hypertension; K21.9 Gastro-esophageal reflux disease without esophagitis; Z79.899 Other long term (current) drug therapy
CPT/HCPCS: 99283; A9270